=== PATIENT | female | born 1950 | race Caucasian/White ===

== ENCOUNTER → 2016-11-27 | Outpatient (CLI) | payer MEDICARE, OTHER ==
[~2016-11-27] MED LIST: CALCIUM 600 + V1 TA1 PO; CARDI-OMEGA1000 MG PO; FAMILY PHARMACY99 MG PO; FERROUS SU325 MG/TAB PO; FOLIC ACID 40400 MCG PO; GLUCOSAMINE CHO1 CAP PO; MULTI VITAMINS1 TAB PO; NIFEDIPINE ER60 MG PO; SIMPLY SLEEP25 MG PO; SIMVASTATIN40 MG PO; VITAMIN C BUFF500 MG PO; [UNRECOGNIZED DRUG - OTHER] PO
== END ==
LOC: COL.RAD 09:04
DX: M25.572 Pain in left ankle and joints of left foot (principal); M19.072 Primary osteoarthritis, left ankle and foot
CPT/HCPCS: J3301; Q9967